=== PATIENT | female | born 1970 | race Native Hawaiian/Other Pacific Islander ===

== ENCOUNTER 2022-06-05 23:21 | Emergency (ER) | payer BC, OTHER ==
[~2022-06-05] VITALS: Ht 162.6 cm; Wt 63.5 kg
[~2022-06-05 23:21] MED LIST: NORG1TAB53 PO
--- NOTE | 2022-06-05 23:40 | NUR ---
Dr. Prieto at bedside. MSE in progress.
[2022-06-05] MEDS ORDERED: TDAP DIPH,PERTUSS,TET VAC/PF 0.5 ML DISP.SYRIN IM ONE (23:58)
[2022-06-05] MEDS ORDERED: AMOXICILLIN-CLAVUL 875-125MG TABLET ONE (23:58)
[2022-06-06] MEDS ORDERED: AMOXicillin 250 MG CAPSULE PO ONE
[2022-06-06] MEDS ORDERED: TDAP DIPH,PERTUSS,TET VAC/PF 0.5 ML DISP.SYRIN IM ONE
[2022-06-06] MEDS ORDERED: AMOXICILLIN-CLAVUL 875-125MG TABLET PO ONE
[2022-06-06] MEDS ORDERED: AMOXicillin 250 MG CAPSULE ONE (00:06)
[2022-06-06] MEDS ORDERED: HYDR-3972 PO (00:08)
[2022-06-06] MEDS ORDERED: AMOX500C2 PO (00:08)
[2022-06-06] MEDS ORDERED: AMOX-430 PO (00:08)
[2022-06-06] MEDS ORDERED: AZIT250T13 PO (00:08)
--- NOTE | 2022-06-06 00:30 | NUR ---
Patient discharged to home in stable condition. A/O x 4. NAD noted. Ambulatory with a steady gait. Allbelongings with patient. Written and verbal after care instructions given. Patient verbalizes understanding of instructions. Stressed follow up or return to ER for worsening s/s.
[2022-06-06 00:33] VITALS: BP 127/57
== END 2022-06-06 00:30 | disposition home or self-care (01) ==
LOC: ER 23:21
DX: S61.431A Puncture wound without foreign body of right hand, initial encounter (principal); S60.410A Abrasion of right index finger, initial encounter; L03.113 Cellulitis of right upper limb; W55.01XA Bitten by cat, initial encounter; Y92.89 Other specified places as the place of occurrence of the external cause
CPT/HCPCS: 90715; A4663

== ENCOUNTER 2023-04-07 09:51 | Emergency (ER) | payer BC ==
[~2023-04-07] VITALS: Ht 162.6 cm; Wt 63.5 kg
[~2023-04-07 09:51] MED LIST changes: +AMOX-430 PO; +AMOX500C2 PO; +AZIT250T13 PO; +HYDR-3972 PO
[2023-04-07] MEDS ORDERED: AZITHROMYCIN 500MG/ D5W 250ML IVPB **ER PYXIS ONLY IV ONE (10:09)
[2023-04-07] MEDS ORDERED: AZITHROMYCIN IV 500 MG in IV DEXTROSE 5% 250 ML IV ONE (10:15)
[2023-04-07 10:36] LABS: BASOPHILS # (AUTO) 0.2 K/UL (0.0-0.2); BASOPHILS % (AUTO) 2.3 % (0.0-2.0); DIFFERENTIAL COMMENT 0; EOSINOPHILS # (AUTO) 0.4 K/uL (0.0-0.7); LYMPHOCYTES # (AUTO) 0.6 K/uL (0.8-4.8); LYMPHOCYTES % (AUTO) 7.3 % (20.5-51.5); MEAN CORPUSCULAR HEMOGLOBIN 31.1 uug (24.7-32.8); MEAN CORPUSCULAR HGB CONC 34 g/dL (32.3-35.6); MEAN CORPUSCULAR VOLUME 93.1 fL (75.5-95.3); MONOCYTES # (AUTO) 0.1 K/uL (0.1-1.30); MONOCYTES % (AUTO) 1.4 % (0.0-11.0); NEUTROPHILS # (AUTO) 7.6 K/uL (1.8-8.9); PLATELET COUNT (AUTO) 284 K/uL (179-408); RED BLOOD CELL COUNT(AUTO) 4.51 MIL/uL (3.63-4.92); RED CELL DISTRIBUTION WIDTH 13.3 % (12.3-17.7); WHITE BLOOD COUNT (AUTO) 8.9 K/uL (3.8-11.8)
[2023-04-07 10:42] LABS: CALCIUM 9.4 mg/dL (8.5-10.1); CREATININE 0.7 mg/dL (0.6-1.3); POTASSIUM 3.8 mmol/L (3.5-5.1)
[2023-04-07] MEDS ORDERED: AZIT500T4 PO (11:19)
[2023-04-07 12:05] VITALS: BP 131/78; TEMP 98.2; O2SAT 98
== END 2023-04-07 12:06 | disposition home or self-care (01) ==
LOC: ER 09:51
DX: S60.511A Abrasion of right hand, initial encounter (principal); I89.1 Lymphangitis; Z79.899 Other long term (current) drug therapy; W55.03XA Scratched by cat, initial encounter; Y93.89 Activity, other specified; Y92.89 Other specified places as the place of occurrence of the external cause; Y99.8 Other external cause status
CPT/HCPCS: 99284; 96365; 96366; 80048; 85025; 36415; J0456; A4606; A4663